=== PATIENT | female | born 1960 | race Caucasian/White ===

== ENCOUNTER 2024-08-22 14:37 | Outpatient (CLI) | payer MEDICARE, OTHER | END 2024-08-22 14:38 | disposition home or self-care (01) | LOC: SCSRAD 14:37 | PROVIDERS: ATTEND Family Medicine | DX: S42.295D Other nondisplaced fracture of upper end of left humerus, subsequent encounter for fracture with routine healing (principal); S42.352A Displaced comminuted fracture of shaft of humerus, left arm, initial encounter for closed fracture ==